=== PATIENT | female | born 1960 | race Two or more races ===

== ENCOUNTER 2024-08-27 09:12 | Outpatient (AMB) | payer OTHER, SELFPAY ==
--- NOTE | 2024-08-27 09:30 | PD.ORTHCLVIS ---
Vital signs 08/27/24 09:31 Height 1.57 m Height Method Stated Weight 79.152 kg Weight Measurement Method Standing Scale BMI 31.8 BP 148/84 H Blood Pressure Source Automatic Cuff Blood Pressure Location Right Upper Arm Position Sitting Respiration 18 Pulse 87 Pulse Source Monitor Temp 97.7 F Temp Source Temporal Artery Scan Pulse Oximetry (%) 97 Oxygen Delivery Method Room Air Med/Allergies Allergies & Medications Allergies No Known Drug Allergies Allergy (Verified 08/27/24 09:31) Medication Reconciliation atorvastatin 20 mg tablet 20 mg PO QDAY 08/27/24 [History Confirmed 08/27/24] empagliflozin 25 mg tablet (Jardiance) 25 mg PO QDAY 08/27/24 [History Confirmed 08/27/24] glipizide 10 mg tablet 10 mg PO QDAY 08/27/24 [History Confirmed 08/27/24] meloxicam 7.5 mg tablet 7.5 mg PO QDAY 08/27/24 [History Confirmed 08/27/24] metformin 1,000 mg tablet 1,000 mg PO QDAY 08/27/24 [History Confirmed 08/27/24] sitagliptin phosphate 100 mg tablet (Januvia) 100 mg PO QDAY 08/27/24 [History Confirmed 08/27/24] Exam Exam Patient is in no acute distress and is cooperative with the examination today. Breathing is nonlabored. In no respiratory distress. Bilateral extremities were evaluated and demonstrates sensation intact to light touch. Palpable pedal pulses are present. No significant edema is present. Bilateral hips were examined. The patient has no pain with log roll of the hips. Internal rotation to 30 degrees and external rotation to 30 degrees is painless. Negative FADIR. The left knee was examined. The left knee is in varus alignment. Range of motion from 0-115 degrees. Knee is stable to varus and valgus as well as AP translation with <5mm. Patient has a negative McMurrays. There is no pain with patellofemoral compression and no crepitus noted. The knee is tender to palpation medially. The right knee was also examined. The right knee is in varus alignment. Range of motion from 0-120 degrees. Knee is stable to varus and valgus as well as AP translation with <5mm. Patient has a negative McMurrays. There is no pain with patellofemoral compression and no crepitus noted. The knee is tender to palpation medially. X-rays demonstrate bilateral knee arthritis Assessment and Plan Problem List (1) Degenerative arthritis of knee, bilateral: Status: Acute Plan: Patient is a 63-year-old female with bilateral knee arthritis of significant severity. We will need new weightbearing x-rays. She does have significant hfhe-gv-oqob arthritis according to the report. We discussed different treatment options depending on what that shows. She will need medical clearance before surgery. 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 ([id number]) MA Intake Visit Data Collection New Patient or Established: New Patient (never been to [facility]) Reason for Visit:: BILATERAL KNEE PAIN Seen by Clinical Staff ONLY (RN/MA): No Verbal consent obtained for Telemed visit?: No 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: 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 PCP or OBGYN visit in last 3 months: Yes Hx Now: No Do You Feel Safe at Home: Yes Authorities Contacted: N/A Questionairres Past Medical History Past Medical History Have you ever been diagnosed with any of the following: Cardiology Problems Hypercholesterolemia: Yes Respiratory Problems Smoking: No Smoking Cessation Counseling: No Smoking Exposure: No Stomache/Intestinal Problems Obesity: Yes Endocrine Problems Diabetes Mellitus Type 1: Yes Subjective Visit Visit for: new patient and knee Immunization / Flu Flu Vaccine in the Last 12 Months: No Flu Vaccine Exclusion Criteria: No Exclusion Criteria History of Present Illness Chief complaint: BILATERAL KNEE PAIN Date of injury / onset of symptoms: 10 YEARS AGO Carlota is a pleasant 63-year-old female with bilateral knee pain and bilateral knee arthritis. She reports the pain is significantly affecting her quality life and happiness. She has had over 4 injections. She has tried physical therapy as well. She has tried anti-inflammatories including Advil Personal History Occupation: DISABLED Red flag PMH: BMI and other (specify) (DIABETIC) BMI Counceling provided: Yes Pain Pain level (0-10): 10 Pain duration: ALL DAY Pain location: inside (medial), outside (lateral), anterior and posterior Pain quality: sharp, dull and aching Pain timing: night, increases with activity and stairs Associated signs & symptoms: stiffness Ambulatory data Ambulatory device: walker Treatments Number of previous injections: 4 Improvement with previous injections: No Number of Physical Therapy sessions: 5 Improvement with PT: No Improvement with NSAIDS: no (MELOXICAM) Review of Systems Review of Systems: All systems negative unless otherwise noted in HPI.
[2024-08-27 09:31] VITALS: BP 148/84; PULSE 87; RESP 18; TEMP 36.5; O2SAT 97; BMI 31.8
--- NOTE | 2024-08-27 09:34 | XR_ITS ---
Examination: AP bilateral knees 2 views Standing right lateral knee left lateral knee 2 views Bilateral axial knees single view TECHNIQUE: Bilateral AP knees single view standing, bilateral PA knees standing single view flexion Standing right lateral knee left lateral knee 2 views Bilateral axial knees single view total 5 views Date and time: August 27, 2024 0953 hours INDICATIONS: Bilateral knee pain 5 years. FINDINGS: Prominent osteopenia Severe narrowing, [id number], medial joint spaces bilaterally Advanced osteoarthritis patellofemoral joints bilaterally Small bilateral knee effusions IMPRESSION: Severe narrowing, [id number] medial joint spaces bilaterally Advanced osteoarthritis patellofemoral joints bilaterally
== END 2024-08-27 09:37 | disposition home or self-care (01) ==
PROVIDERS: PCP Family Medicine; Referring Provider Family Medicine; Supervising Provider Orthopaedic Surgery Adult Reconstructive Orthopaedic Surgery; Visit Provider Orthopaedic Surgery Adult Reconstructive Orthopaedic Surgery
DX: M17.0 Bilateral primary osteoarthritis of knee (principal); M25.562 Pain in left knee; M25.561 Pain in right knee; E10.9 Type 1 diabetes mellitus without complications; E78.00 Pure hypercholesterolemia, unspecified
CPT/HCPCS: 73564; 99203; G0463

== ENCOUNTER 2024-09-12 08:00 | Outpatient (AMB) | payer OTHER, SELFPAY ==
--- NOTE | 2024-09-12 08:35 | PD.ORTHCLVIS ---
Vital signs 09/12/24 08:36 Height 1.57 m Height Method Stated Weight 78.528 kg Weight Measurement Method Standing Scale BMI 31.8 BP 147/83 H Blood Pressure Source Automatic Cuff Blood Pressure Location Right Upper Arm Position Sitting Respiration 19 Pulse 79 Pulse Source Monitor Temp 97.8 F Temp Source Temporal Artery Scan Pulse Oximetry (%) 95 Oxygen Delivery Method Room Air Med/Allergies Allergies & Medications Allergies No Known Drug Allergies Allergy (Verified 09/12/24 08:39) Medication Reconciliation atorvastatin 20 mg tablet 20 mg PO QDAY 08/27/24 [History Confirmed 09/12/24] empagliflozin 25 mg tablet (Jardiance) 25 mg PO QDAY 08/27/24 [History Confirmed 09/12/24] glipizide 10 mg tablet 10 mg PO QDAY 08/27/24 [History Confirmed 09/12/24] meloxicam 7.5 mg tablet 7.5 mg PO QDAY 08/27/24 [History Confirmed 09/12/24] metformin 1,000 mg tablet 1,000 mg PO QDAY 08/27/24 [History Confirmed 09/12/24] sitagliptin phosphate 100 mg tablet (Januvia) 100 mg PO QDAY 08/27/24 [History Confirmed 09/12/24] Exam Exam Patient is in no acute distress and is cooperative with the examination today. Breathing is nonlabored. In no respiratory distress. Bilateral extremities were evaluated and demonstrates sensation intact to light touch. Palpable pedal pulses are present. No significant edema is present. Bilateral hips were examined. The patient has no pain with log roll of the hips. Internal rotation to 30 degrees and external rotation to 30 degrees is painless. Negative FADIR. The left knee was examined. The left knee is in varus alignment. Range of motion from 0-115 degrees. Knee is stable to varus and valgus as well as AP translation with <5mm. Patient has a negative McMurrays. There is no pain with patellofemoral compression and no crepitus noted. The knee is tender to palpation medially. The right knee was also examined. The right knee is in varus alignment. Range of motion from 0-120 degrees. Knee is stable to varus and valgus as well as AP translation with <5mm. Patient has a negative McMurrays. There is no pain with patellofemoral compression and no crepitus noted. The knee is tender to palpation medially. X-rays demonstrate bilateral knee arthritisOf significant severity Assessment and Plan Problem List (1) Degenerative arthritis of knee, bilateral: Status: Acute Plan: Patient is a 63-year-old female with bilateral knee arthritis of significant severity. We will need new weightbearing x-rays. She does have significant pjum-rh-mudb arthritis according to the report. We discussed different treatment options depending on what that shows. She will need medical clearance before surgery. Her hemoglobin A1c has went up to 9.3. We discussed that this is not medically optimized and she is at high risk for medical complications. This would need to get improved in order to proceed with surgery The nature and purpose of the total knee replacement, alternative method(s) of treatment, the material risks involved, and the possibility of complications were fully explained to the patient. The patient does NOT have any of the following contraindications to TKA: - Active infection of the knee joint, OR - Active systemic bacteremia, OR - Active skin infection or open wound at surgical site, OR - Neuropathic arthritis, OR - Severe, rapidly progressive neurological disease, OR - Severe medical condition that makes risks of surgery outweigh the potential benefit. ?The patient was told the most common risks and complications associated with a total knee replacement include, but are not limited to: blood clots in the leg, stiffness, fatal pulmonary embolism, dislocation of the prosthesis, intraoperative and postoperative fractures of the femur or tibia, infection, failure of the prosthesis or grafting materials, complications from anesthesia, reactions to blood transfusions, postoperative leg length inequality, instability of the knee replacement, nerve damage or injury, vascular injury, delayed wound healing, infection, other injury or even . In addition, there are risks associated with anesthesia given during this operation. Also, the patient was told that after undergoing a total knee replacement there may still be persistent pain or disability. The patient was informed that the success of this operation in part depends upon the mechanical devices which are going to be implanted and that these devices can fail or malfunction, and may need to be repaired or replaced and there are no guarantees as to the longevity of this device or its parts and that it or its parts could fail prematurely. The importance of compliance with physical therapy was also discussed with the patient. The patient was also notified that during the course of surgery, there may be a need to use bone graft from donors, and that any bone graft used will be carefully screened for communicable diseases, including AIDS, hepatitis, Yoel-Creutzfeldt, or other diseases, but despite the screening procedures, there is a small chance that they could contract one of these diseases. Finally, the patient was asked to follow completely and fully with all advice and recommended treatments, and that recovery and ultimate outcome are affected by their compliance with recommended treatment. We discussed the risks, benefits and treatment alternatives, and the patient is interested in proceeding with surgery. We will try to set this up when her diabetes is well controlled Office Procedures GNS Level of Care Nursing/Assessment Patient Status: Established Patient Nursing Assessment/Reassesment: Medication Reconciliation, Update PMH in EMR and Vital Signs Coordination of Care: Complex Care and Chronic Disease 1-5, Education Complex Pt/Fam, Consent,records obtained, informed consent, Lab and Imaging orders, Results/Orders obtained and Staff clarify orders Special Needs: Language special needs Established Patient Charge Established Patient Point Assignment: 110 Established Patient Point Charge: EP Level 3 (80-115) MA Intake Visit Data Collection New Patient or Established: Established Patient (seen at [facility] within 3 years) Reason for Visit:: F/U XRAYS Seen by Clinical Staff ONLY (RN/MA): No Verbal consent obtained for Telemed visit?: No 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 PCP or OBGYN visit in last 3 months: Yes Hx Now: No Do You Feel Safe at Home: Yes Authorities Contacted: N/A Questionairres Past Medical History Past Medical History Have you ever been diagnosed with any of the following: Cardiology Problems Hypercholesterolemia: Yes Respiratory Problems Smoking: No Smoking Cessation Counseling: No Smoking Exposure: No Stomache/Intestinal Problems Obesity: Yes Endocrine Problems Diabetes Mellitus Type 1: Yes Subjective Visit Visit for: new patient and knee Immunization / Flu Flu Vaccine in the Last 12 Months: No Flu Vaccine Exclusion Criteria: No Exclusion Criteria History of Present Illness Chief complaint: BILATERAL KNEE PAIN Date of injury / onset of symptoms: 10 YEARS AGO Carlota is a pleasant 63-year-old female with bilateral knee pain and bilateral knee arthritis. She reports the pain is significantly affecting her quality life and happiness. She has had over 4 injections. She has tried physical therapy as well. She has tried anti-inflammatories including Advil Her hemoglobin A1c is 9.6 Personal History Occupation: DISABLED Red flag PMH: BMI and other (specify) (DIABETIC) BMI Counceling provided: Yes Pain Pain level (0-10): 10 Pain duration: ALL DAY Pain location: inside (medial), outside (lateral), anterior and posterior Pain quality: sharp, dull and aching Pain timing: night, increases with activity and stairs Associated signs & symptoms: stiffness Ambulatory data Ambulatory device: walker Treatments Number of previous injections: 4 Improvement with previous injections: No Number of Physical Therapy sessions: 5 Improvement with PT: No Improvement with NSAIDS: no (MELOXICAM) Review of Systems Review of Systems: All systems negative unless otherwise noted in HPI.
[2024-09-12 08:36] VITALS: BP 147/83; PULSE 79; RESP 19; TEMP 36.6; O2SAT 95; BMI 31.8
== END 2024-09-12 08:48 | disposition home or self-care (01) ==
LOC: HODSRG 08:00
PROVIDERS: PCP Family Medicine; Referring Provider Family Medicine; Supervising Provider Orthopaedic Surgery Adult Reconstructive Orthopaedic Surgery; Visit Provider Orthopaedic Surgery Adult Reconstructive Orthopaedic Surgery
DX: M17.0 Bilateral primary osteoarthritis of knee (principal); M25.562 Pain in left knee; M25.561 Pain in right knee; E10.9 Type 1 diabetes mellitus without complications; E78.00 Pure hypercholesterolemia, unspecified
CPT/HCPCS: 99213; G0463

== ENCOUNTER 2024-12-10 08:56 | Outpatient (AMB) | payer OTHER, SELFPAY ==
[2024-12-10 09:10] VITALS: BP 131/83; PULSE 81; RESP 18; TEMP 36.4; O2SAT 94; BMI 30.8
--- NOTE | 2024-12-10 09:10 | ORTHONT_ITS ---
Vital signs 12/10/24 09:10 Height 1.57 m Height Method Measured Weight 75.92 kg Weight Measurement Method Standing Scale BMI 30.8 BP 131/83 H Blood Pressure Source Automatic Cuff Blood Pressure Location Left Upper Arm Position Sitting Respiration 18 Pulse 81 Pulse Source Monitor Temp 97.6 F Temp Source Temporal Artery Scan Pulse Oximetry (%) 94 L Oxygen Delivery Method Room Air Med/Allergies Allergies & Medications Allergies No Known Drug Allergies Allergy (Verified 12/10/24 09:13) Medication Reconciliation atorvastatin 20 mg tablet 20 mg PO QDAY 08/27/24 [History Confirmed 12/10/24] empagliflozin 25 mg tablet (Jardiance) 25 mg PO QDAY 08/27/24 [History Confirmed 12/10/24] glipizide 10 mg tablet 10 mg PO QDAY 08/27/24 [History Confirmed 12/10/24] meloxicam 7.5 mg tablet 7.5 mg PO QDAY 08/27/24 [History Confirmed 12/10/24] metformin 1,000 mg tablet 1,000 mg PO QDAY 08/27/24 [History Confirmed 12/10/24] sitagliptin phosphate 100 mg tablet (Januvia) 100 mg PO QDAY 08/27/24 [History Confirmed 12/10/24] Exam Exam Patient is in no acute distress and is cooperative with the examination today. Breathing is nonlabored. In no respiratory distress. Bilateral extremities were evaluated and demonstrates sensation intact to light touch. Palpable pedal pulses are present. No significant edema is present. Bilateral hips were examined. The patient has no pain with log roll of the hips. Internal rotation to 30 degrees and external rotation to 30 degrees is painless. Negative FADIR. The left knee was examined. The left knee is in varus alignment. Range of motion from 0-115 degrees. Knee is stable to varus and valgus as well as AP translation with <5mm. Patient has a negative McMurrays. There is no pain with pa tellofemoral compression and no crepitus noted. The knee is tender to palpation medially. The right knee was also examined. The right knee is in varus alignment. Range of motion from 0-120 degrees. Knee is stable to varus and valgus as well as AP translation with <5mm. Patient has a negative McMurrays. There is no pain with patellofemoral compression and no crepitus noted. The knee is tender to pa lpation medially. X-rays demonstrate bilateral knee arthritisOf significant severity Assessment and Plan Problem List (1) Degenerative arthritis of knee, bilateral: Status: Acute Plan: Patient is a 63-year-old female with bilateral knee arthritis of significant severity. We will need new weightbearing x-rays. She does have significant ijer-xc-ufyl arthritis according to the report. We discussed different treatment options depending on what that shows. She will need medical clearance before surgery. Her hemoglobin A1c is 8.4 which we told there is improvement but still not well- controlled. We would like for this to be in the sevens in order to proceed with surgery. Office Procedures GNS Level of Care Nursing/Assessment Patient Status: Established Patient Nursing Assessment/Reassesment: Medication Reconciliation, Orthostatic Vitals, Update PMH in EMR and Vital Signs Coordination of Care: Complex Care and Chronic Disease 1-5, Education Complex Pt/Fam, Consent,records obtained, informed consent, Education Simp Pt/Fam, Lab and Imaging orders, Results/Orders obtained and Staff clarify orders Special Needs: Language special needs Established Patient Charge Established Patient Point Assignment: 135 Established Patient Point Charge: EP Level 4 (120-155) MA Intake Visit Data Collection New Patient or Established: Established Patient (seen at [facility] within 3 years) Reason for Visit:: FOLLOW UP A1C Seen by Clinical Staff ONLY (RN/MA): No Seed Analyst Required: Yes PCP or OBGYN visit in last 3 months: Yes Hx Now: No Do You Feel Safe at Home: Yes Authorities Contacted: N/A Questionairres Past Medical History Past Medical History Have you ever been diagnosed with any of the following: Cardiology Problems Hypercholesterolemia: Yes Respiratory Problems Smoking: No Smoking Cessation Counseling: No Smoking Exposure: No Stomache/Intestinal Problems Obesity: Yes Endocrine Problems Diabetes Mellitus Type 1: Yes Subjective Visit Visit for: follow up visit and knee Immunization / Flu Flu Vaccine in the Last 12 Months: No Flu Vaccine Exclusion Criteria: Refused by Patient History of Present Illness Chief complaint: FOLLOW UP A1C Date of injury / onset of symptoms: 10 YEARS AGO Carlota is a pleasant 63-year-old female with bilateral knee pain and bilateral knee arthritis. She reports the pain is significantly affecting her quality life and happiness. She has had over 4 injections. She has tried physical therapy as well. She has tried anti-inflammatories including Advil Her hemoglobin A1c is 8.4 which is down from 9.6 Personal History Occupation: DISABLED Red flag PMH: none BMI Counceling provided: Yes Pain Pain level (0-10): 10 Pain duration: ALL DAY Pain location: anterior Pain quality: sharp Pain timing: night Associated signs & symptoms: stiffness Ambulatory data Ambulatory device: none Treatments Number of previous injections: 4 Improvement with previous injections: No Number of Physical Therapy sessions: 5 Improvement with PT: No Improvement with NSAIDS: no Review of Systems Review of Systems: All systems negative unless otherwise noted in HPI.
== END 2024-12-10 09:20 | disposition home or self-care (01) ==
LOC: HODSRG 08:56
PROVIDERS: PCP Family Medicine; Referring Provider Family Medicine; Supervising Provider Orthopaedic Surgery Adult Reconstructive Orthopaedic Surgery; Visit Provider Orthopaedic Surgery Adult Reconstructive Orthopaedic Surgery
DX: M17.0 Bilateral primary osteoarthritis of knee (principal); M25.562 Pain in left knee; M25.561 Pain in right knee; E10.9 Type 1 diabetes mellitus without complications; E78.00 Pure hypercholesterolemia, unspecified; E66.9 Obesity, unspecified; Z71.3 Dietary counseling and surveillance; Z68.30 Body mass index [BMI] 30.0-30.9, adult
CPT/HCPCS: 99214; G0463